=== PATIENT | female | born 2000 | race Caucasian/White ===

== ENCOUNTER 2021-07-09 15:08 | Emergency (ER) | payer OTHER ==
[2021-07-09 15:49] LABS: BASOPHILS # (AUTO) 0.1 10^3/uL (0.0-0.1); BASOPHILS % (AUTO) 0.7 %; EOSINOPHILS # (AUTO) 0.1 10^3/uL (0.0-0.7); HCT - HEMATOCRIT 37.1 % (37.0-47.0); HGB - HEMOGLOBIN 12.2 g/dL (12.0-16.0); LYMPHOCYTES # (AUTO) 2.1 10^3/uL (1.5-3.5); LYMPHOCYTES % (AUTO) 30.9 %; MEAN CORPUSCULAR HEMOGLOBIN 28.9 pg (27.0-31.0); MEAN CORPUSCULAR HGB CONC 32.9 g/dL (32.0-36.0); MEAN CORPUSCULAR VOLUME 87.9 fL (81.0-99.0); MEAN PLATELET VOLUME 9.9 fL (7.9-10.8); MONOCYTES # (AUTO) 0.5 10^3/uL (0.0-1.0); MONOCYTES % (AUTO) 7.1 %; NEUTROPHILS # (AUTO) 4.1 10^3/uL (1.5-6.6); NEUTROPHILS % (AUTO) 60.2 %; PLT - PLATELET COUNT 271 10^3/uL (130-450); RED BLOOD COUNT 4.22 10^6/uL (4.20-5.40); WHITE BLOOD COUNT 6.8 x10^3/uL (4.8-10.8)
[2021-07-09 15:51] LABS: BILIRUBIN,URINE NEGATIVE (NEGATIVE); GLUCOSE, URINE (UA) NEGATIVE (NEGATIVE); KETONES,URINE (UA) NEGATIVE (NEGATIVE); LEUKOCYTE ESTERASE, URINE NEGATIVE (NEGATIVE); NITRITE,URINE NEGATIVE (NEGATIVE); OCCULT BLOOD,URINE LARGE (NEGATIVE); PROTEIN,URINE NEGATIVE (NEGATIVE); UROBILINOGEN,URINE 0.2 (NORMAL) E.U./dL (NORMAL)
[2021-07-09 15:53] LABS: CLARITY,URINE CLEAR (CLEAR)
[2021-07-09 16:00] LABS: ALBUMIN 4.4 g/dL (3.2-5.5); ALBUMIN/GLOBULIN RATIO 1.5 (1.0-2.2); BILIRUBIN,TOTAL 0.8 mg/dL (0.2-1.0); CALCIUM 8.9 mg/dL (8.5-10.3); CREATININE 0.6 mg/dL (0.4-1.0); POTASSIUM 3.8 mmol/L (3.5-5.0); TOTAL PROTEIN 7.3 g/dL (6.7-8.2)
[2021-07-09 16:04] LABS: BACTERIA,URINE Few /HPF (None Seen); SQUAMOUS EPITHELIAL CELL,UR MANY Squamous (<= Few); WBC,URINE 0-3 /HPF (0-5)
--- NOTE | 2021-07-09 16:44 | Ultrasound Report ---
PROCEDURE: OB First Trimester w/TV INDICATIONS: vag bleed, 6 weeks preg OUTSIDE/PRIOR DATING DATA: Last menstrual period (LMP): 05/20/2021. LMP-based estimated date of delivery (YOEL): 02/24/2022. First dating scan (date and location): 07/09/2021, [facility]. Estimated date of delivery (YOEL) from first dating scan: Not calculated. TECHNIQUE: Real-time scanning was performed of the fetus and maternal pelvic organs, with image documentation. Endovaginal scanning was also performed to better visualize the fetus and maternal ovaries. COMPARISON: None FINDINGS: There is a gestational sac with a mean gestational sac diameter of 0.8 cm, correlating with a 5 week 4 day . There are possibly 2 separate yolk sacs. No crown-rump length or heartbeat. A. Gestational hemorrhage measures approximately 2.3 x 1.1 cm. Measurement variability in dating: +/- 4 weeks by LMP, +/- 7 days by mean sac diameter (use before 6 weeks gestation if crown-rump length not able to be measured), +/- 5 days by crown-rump length (6-12 weeks gestation). Maternal organs: Ovaries right corpus luteum.. IMPRESSION: 1. Findings likely represent very early intrauterine with possibly 2 yolk sacs, and no [place] n-rump length or heartbeat. Mean sac diameter measurement is 5 weeks 4 days. 2. Perigestational hemorrhage. Recommend serial beta-hCGs and possible follow-up ultrasound in 1-2 weeks. Reviewed by: Rupert Cardenas MD on 07/09/2021 4:42 PM PDT Approved by: Rupert Cardenas MD on 07/09/2021 4:42 PM PDT Station ID: [id number]
--- NOTE | 2021-07-09 17:22 | ED Physician Documentation ---
PD HPI FEMALE - Stated complaint Stated Complaint: FEMALE - Chief complaint Chief Complaint: Abd Pain - History obtained from History obtained from: Patient - History of Present Illness Timing - onset: Today Timing - duration: Days (1) Timing - details: Gradual onset Pain level max: 3 Pain level max: 1 Associated symptoms: Vaginal bleeding (spotting) Contributing factors: [employer] History: G (2), P (1) Recently seen: Not recently seen Review of Systems Constitutional: denies: Fever, Chills GI: denies: Vomiting, Diarrhea : reports: Now EGA. denies: Dysuria, Frequency, Hesitancy Skin: denies: Rash Musculoskeletal: denies: Neck pain, Back pain Neurologic: denies: Headache PD PAST MEDICAL HISTORY - Past Medical History Past Medical History: No - Past Surgical History Past Surgical History: No - Present Medications Home Medications: Ambulatory Orders Medication Instructions Recorded Confirmed No Known Home Medications 07/09/21 07/09/21 - Allergies Allergies/Adverse Reactions: Allergies Allergy/AdvReac Type Severity Reaction Status Date / Time No Known Drug Allergies Allergy Verified 07/09/21 15:30 - Social History Does the pt smoke?: No Smoking Status: Never smoker Does the pt drink ETOH?: No Does the pt have substance abuse?: No PD ED PE NORMAL - Vitals Vital signs reviewed: Yes - General General: Alert and oriented X 3, No acute distress - HEENT HEENT: Moist mucous membranes - Neck Neck: Supple, no meningeal sign - Cardiac Cardiac: RRR - Respiratory Respiratory: No respiratory distress, Clear bilaterally - Abdomen Abdomen: Soft, Non tender, Non distended - Female Female : Pt declined - Back Back: No spinal TTP - Derm Derm: Warm and dry - Extremities Extremities: No edema, No calf tenderness / cord - Neuro Neuro: Alert and oriented X 3 - Psych Psych: Normal mood, Normal affect Results - Vitals Vitals: Vital Signs - 24 hr 07/09/21 07/09/21 15:28 17:51 Temperature 36.6 C 36.8 C Heart Rate 90 68 Respiratory 16 16 Rate Blood Pressure 129/70 115/69 O2 Saturation 99 100 Oxygen O2 Source Room air - Labs Labs: Laboratory Tests 07/09/21 07/09/21 07/09/21 15:31 15:31 15:31 WBC RBC Hgb Hct MCV MCH MCHC RDW Plt Count MPV Neut # (Auto) Lymph # (Auto) [place] # (Auto) Eos # (Auto) Baso # (Auto) Absolute Nucleated RBC Nucleated RBC % Sodium 135 Potassium 3.8 Chloride 103 Carbon Dioxide 25 Anion Gap 7.0 BUN 12 Creatinine 0.6 Estimated GFR (MDRD) 125 Glucose 91 Calcium 8.9 Total Bilirubin 0.8 AST 14 ALT 12 Alkaline Phosphatase 45 Total Protein 7.3 Albumin 4.4 Globulin 2.9 Albumin/Globulin Ratio 1.5 Lipase 28 HCG, Quant 8136.00 Urine Color STRAW Urine Clarity CLEAR Urine pH 6.0 Ur Specific [place] <=1.005 Urine Protein NEGATIVE Urine Glucose (UA) NEGATIVE Urine Ketones NEGATIVE Urine Occult Blood LARGE H Urine Nitrite NEGATIVE Urine Bilirubin NEGATIVE Urine Urobilinogen 0.2 (NORMAL) Ur Leukocyte Esterase NEGATIVE Urine RBC 11-25 H Urine WBC 0-3 Ur Squamous Epith Cells MANY Squamous H Urine Bacteria Few Ur Microscopic Review INDICATED Urine Culture Comments NOT INDICATED 07/09/21 15:42 WBC 6.8 RBC 4.22 Hgb 12.2 Hct 37.1 MCV 87.9 MCH 28.9 MCHC 32.9 RDW 12.0 Plt Count 271 MPV 9.9 Neut # (Auto) 4.1 Lymph # (Auto) 2.1 [place] # (Auto) 0.5 Eos # (Auto) 0.1 Baso # (Auto) 0.1 Absolute Nucleated RBC 0.00 Nucleated RBC % 0.0 Sodium Potassium Chloride Carbon Dioxide Anion Gap BUN Creatinine Estimated GFR (MDRD) Glucose Calcium Total Bilirubin AST ALT Alkaline Phosphatase Total Protein Albumin Globulin Albumin/Globulin Ratio Lipase HCG, Quant Urine Color Urine Clarity Urine pH Ur Specific [place] Urine Protein Urine Glucose (UA) Urine Ketones Urine Occult Blood Urine Nitrite Urine Bilirubin Urine Urobilinogen Ur Leukocyte Esterase Urine RBC Urine WBC Ur Squamous Epith Cells Urine Bacteria Ur Microscopic Review Urine Culture Comments - Rads (name of study) OB US Radiology: Final report received, EMP read contemporaneously, See rad report PD MEDICAL DECISION MAKING - ED course Complexity details: reviewed results, re-evaluated patient, considered differential, d/w patient ED course: 21-year-old female with vaginal bleeding in early . Appears to be very early on ultrasound. She has an appointment next week with her OB. Recommend repeat hCG and repeat ultrasound. No evidence of ectopic. Possible twin gestation. Patient counseled regarding signs and symptoms for which I believe and urgent re-evaluation would be necessary. Patient with good understanding of and agreement to plan and is comfortable going home at this time This document was made in part using voice recognition software. While efforts are made to proofread this document, sound alike and grammatical errors may occur. IMPRESSION: 1. Findings likely represent very early intrauterine with possibly 2 yolk sacs, and no crown-rump length or heartbeat. Mean sac diameter measurement is 5 weeks 4 days. 2. Perigestational hemorrhage. Recommend serial beta-hCGs and possible follow-up ultrasound in 1-2 weeks. Departure - Departure Disposition: Home, Self Care Clinical Impression: Subchorionic hematoma in first trimester Qualifiers: Fetus number: single or unspecified fetus Qualified Code(s): O41.8X10 - Other specified disorders of amniotic fluid and membranes, first trimester, not applicable or unspecified Condition: Good Instructions: ED Miscarriage Poss Follow-Up: GAUTAM FARIAS [Physician No Access] - Within 1 week Comments: It appears that you likely have a very early intrauterine , possibly to yolk sacs. You are measuring about 5 weeks and 4 days. It is recommended that you have a repeat hCG and a repeat ultrasound in 1 to 2 weeks. Please return if you worsen. Please follow-up with your OB for further care. Your hCG level today is 8136. Your ultrasound results are below. IMPRESSION: 1. Findings likely represent very early intrauterine with possibly 2 yolk sacs, and no crown-rump length or heartbeat. Mean sac diameter measurement is 5 weeks 4 days. 2. Perigestational hemorrhage. Recommend serial beta-hCGs and possible follow-up ultrasound in 1-2 weeks. Discharge Date/Time: 07/09/21 17:52
[2021-07-09 17:52] VITALS: BP 115/69
== END 2021-07-09 17:52 | disposition home or self-care (01) ==
LOC: ED 15:08
DX: O41.8X10 Other specified disorders of amniotic fluid and membranes, first trimester, not applicable or unspecified (principal); Z3A.01 Less than 8 weeks gestation of pregnancy
CPT/HCPCS: 36415; 80053; 81001; 81003; 83690; 84702; 85025; 87086; 99283; 99284